=== PATIENT | male | born 1940 ===

== ENCOUNTER 2017-05-14 10:30 | Inpatient (IN) | payer MEDICARE, OTHER ==
[2017-05-31] MEDS ORDERED: VANCOMYCIN HCL 1,000 MG in 0.9 % SODIUM CHLORIDE 250ML 250 ML IVPB ONE (06:00)
[2017-05-31] MEDS ORDERED: FAMOTIDINE 20MG TABLET PO ONE (06:00)
[2017-05-31] MEDS ORDERED: METOCLOPRAMIDE 10 MG TABLET PO ONE (06:00)
[2017-05-31] MEDS ORDERED: ACETAMINOPHEN 1,000 MG/100 ML BTL IV ONE (06:00)
[2017-05-31] MEDS ORDERED: CELECOXIB 100 MG CAPSULE PO ONE (06:00)
[2017-05-31] MEDS ORDERED: MECLIZINE 25 MG TABLET PO ONE (06:00)
[2017-05-31 13:03] LABS: ABO GROUP AB; ANTIBODY SCREEN NEGATIVE (NEGATIVE); RH TYPE POSITIVE
[2017-05-31] MEDS ORDERED: *PACU ONLY* KETAMINE HCL 10 MG/ML (20ML) VIAL IV ONE (14:00)
[2017-05-31] MEDS ORDERED: MIDAZOLAM HCL 2MG/2ML VIAL IV ONE (14:00)
[2017-05-31] MEDS ORDERED: BUPIVACAINE LIPOSOME 266MG/20ML VIAL IV ONE (14:00)
[2017-05-31] MEDS ORDERED: TRANEXAMIC ACID 1,000 MG/10 ML ML IV ONE ×2 (14:00)
[2017-05-31] MEDS ORDERED: BUPIVACAINE 0.5% (5MG/ML) PF 30ML VIAL IVP ONE (14:00)
[2017-05-31] MEDS ORDERED: VANCOMYCIN HCL 1 GM VIAL IVPB ONE (14:00)
[2017-05-31] MEDS ORDERED: KETOROLAC 30 MG/ML VIAL IVP ONE (14:00)
[2017-05-31] MEDS ORDERED: HYDROMORPHONE HCL 2 MG/ML VIAL IV ONE (14:00)
[2017-05-31] MEDS ORDERED: FENTANYL PF 100MCG/2ML VIAL IV ONE (14:00)
[2017-05-31] MEDS ORDERED: BUPIVACAINE 0.5% W/EPI MPF 30 ML VIAL IVP ONE (14:00)
[2017-05-31] MEDS ORDERED: PROPOFOL 10 MG/ML VIAL IV ONE (14:00)
[2017-05-31] MEDS ORDERED: BISACODYL 10 MG SUPP RC PRN (14:35)
[2017-05-31] MEDS ORDERED: HYDROMORPHONE HCL 2 MG/ML VIAL IM PRN (14:35)
[2017-05-31] MEDS ORDERED: PROMETHAZINE HCL 12.5 MG in 0.9 % SODIUM CHLORIDE 100ML 50 ML IVPB PRN (14:35)
[2017-05-31] MEDS ORDERED: MORPHINE SULFATE 5 MG/ML PFS IVP PRN ×4 (14:35)
[2017-05-31] MEDS ORDERED: ACETAMINOPHEN 325 MG TAB PO PRN (14:35)
[2017-05-31] MEDS ORDERED: KETOROLAC 30 MG/ML VIAL IVP PRN ×2 (14:35)
[2017-05-31] MEDS ORDERED: ZOLPIDEM TARTRATE 5 MG TABLET PO PRN (14:35)
[2017-05-31] MEDS ORDERED: DIPHENHYDRAMINE HCL 25 MG CAPSULE PO PRN (14:35)
[2017-05-31] MEDS ORDERED: HYDROMORPHONE HCL 1MG/ML **SYRINGE IM PRN (14:35)
[2017-05-31] MEDS ORDERED: METOCLOPRAMIDE HCL 10 MG/2 ML VIAL IVP PRN (14:35)
[2017-05-31] MEDS ORDERED: TRAMADOL HCL 50 MG TABLET PO PRN ×2 (14:35)
[2017-05-31] MEDS ORDERED: ACETAMINOPHEN W/ CODEINE 300MG/30MG TABLET PO PRN ×2 (14:35)
[2017-05-31] MEDS ORDERED: NALOXONE 0.4 MG/1 ML VIAL IVP PRN (14:35)
[2017-05-31] MEDS ORDERED: HYDROCODONE/APAP 5/325MG TABLET PO PRN ×2 (14:35)
[2017-05-31] MEDS ORDERED: DEXTROSE 5 % AND 0.9 % NACL 1,000 ML IV PRN (14:35)
[2017-05-31] MEDS ORDERED: ACETAMINOPHEN W/ CODEINE 300MG/60MG TABLET PO PRN ×2 (14:35)
[2017-05-31] MEDS ORDERED: MAGNESIUM HYDROXIDE 30 ML UDC PO PRN (14:35)
[2017-05-31] MEDS ORDERED: HYDROCODONE/APAP 7.5/325MG TABLET PO PRN ×2 (14:35)
[2017-05-31] MEDS ORDERED: AL HYDROX/MAG HYDROX 30ML UD PO PRN (14:35)
[2017-05-31] MEDS: ONDANSETRON HCL IV 4 MG/2 ML VIAL IVP PRN (18:21)
[2017-05-31] MEDS ORDERED: SIMVASTATIN 20 MG TABLET PO SCH (22:00)
[2017-05-31] MEDS: FERROUS SULFATE 325 MG TAB PO SCH (22:05)
[2017-05-31] MEDS: DOCUSATE SODIUM 100 MG CAPSULE PO SCH (22:05)
[2017-05-31] MEDS: METOPROLOL TART 50 MG TABLET PO SCH (22:06)
[2017-06-01] MEDS: 0.45% SODIUM CHLORIDE 1,000 ML IV PRN ×2 (00:54→10:40)
[2017-06-01] MEDS: VANCOMYCIN HCL 1,000 MG in 0.9 % SODIUM CHLORIDE 250ML 250 ML IVPB SCH ×2 (00:55→12:55)
[2017-06-01] MEDS ORDERED: VANCOMYCIN HCL 1,000 MG in 0.9 % SODIUM CHLORIDE 250ML 250 ML IVPB SCH (01:00)
[2017-06-01] MEDS: ONDANSETRON HCL IV 4 MG/2 ML VIAL IVP PRN (01:18)
[2017-06-01 06:35] LABS: HEMOGLOBIN 10.9 gm/dl (14.0-18.0)
[2017-06-01] MEDS ORDERED: GLIPIZIDE 5 MG TABLET PO SCH ×2 (08:00→17:30)
[2017-06-01] MEDS ORDERED: METFORMIN 500 MG TABLET PO SCH (08:00)
[2017-06-01] MEDS: DOCUSATE SODIUM 100 MG CAPSULE PO SCH (09:20)
[2017-06-01] MEDS: FERROUS SULFATE 325 MG TAB PO SCH (09:21)
[2017-06-01] MEDS: METOPROLOL TART 50 MG TABLET PO SCH (09:21)
[2017-06-01] MEDS ORDERED: HYDROCHLOROTHIAZIDE 12.5 MG CAPSULE PO SCH (10:00)
[2017-06-01] MEDS ORDERED: LISINOPRIL 20 MG TABLET PO SCH (10:00)
[2017-06-01] MEDS ORDERED: RIVAROXABAN 10 MG TABLET PO SCH (10:00)
[2017-06-01] MEDS ORDERED: CELECOXIB 100 MG CAPSULE PO SCH (10:00)
--- NOTE | 2017-06-01 10:45 | Rehab Evaluation ---
Patient Information - Patient Information Diagnosis: Right total knee Ordered Treatment: PT Evaluate and Treat Status: Initial Evaluation Surgery: Yes (right TKA) Date of Surgery: 05/31/17 Past Medical/Surgical Hx: PAST MEDICAL/SURGICAL HISTORY Past Surgical History cardiac cath with stent placement; colonoscopy; mcl tear; PMH - Respiratory Hx Respiratory Disorders No PMH - Cardiovascular Hx Cardiovascular Disorders Yes Hx Cardiac Catheterization Yes Hx Heart Attack Yes Hx Hypertension Yes Hx Coronary Stent Yes Comment: varicose veins PMH - Neuro Hx Neurological Disorders No PMH - GI Hx Gastrointestinal Disorders Yes Hx Diverticulitis Yes PMH - Hx Genitourinary Disorders Yes Hx Kidney Stones Yes PMH - Endocrine Hx Endocrine Disorders Yes Hx Diabetes Yes Hx of NIDDM Yes PMH - Musculoskeletal Hx Musculoskeletal Disorders Yes Hx Arthritis Yes Comment: neck injury; herniated disc cervical; radiculopathy; limited neck movement; PMH - Psych Hx Psychiatric Problems Yes Hx Depression Yes Comment: with stage 3 cancer; retired systems architect PMH - Hematology/Oncology Hx Hematology/Oncology No Disorders Precautions: [place], Fall - Time With Patient Total Time Spent With Patient (Min): 30 Treatment Procedures: Detail (Patient seen bedside, daughter present. Able to move supine to sit to stand with CGA only. Patient ambulated into bathroom with FWW and assist with IV pole, able to use commode seated and re-stand and wash hands independently. Ambulated with walker about 100 feet in [place], WBAT right LE then back to room, into bed with SBA and worked on knee exercises: heel slides, SLR, ankle pumps, quad sets. Re-attached all devices and pushed tray table close, call light within reach.) Subjective Information - Subjective Information Per Patient (Lives in two story home with , daughter and other family will be helping at home and has hospital bed on first floor of home for now until can climb multiple steps to second floor. Will also have home health PT when first goes home.) Objective Data - Pain Pain Present: No - Mental Status Patient Orientation: Oriented x3 - Visual Perception Appears within normal limits for therapeutic activities - ROM Within normal limits (except right knee about -10degrees extension to 60 degrees flexion.) - Strength/Tone Within normal limits (except right quads 3+/5, hamstrings 4/5 at least.) - Coordination Appears within normal limits for therapeutic activities - Bed Mobility Independent - Transfers Independent - Balance Balance Sitting: Good Balance Standing: Good - Sensation Intact - Gait Detail (Using FWW for gait and independent so far. No pain with weightbearing.) Therapy Assessment - Therapy Assessment Detail (Patient is doing quite well with pain control and function so far. Had some issues after surgery yesterday but good today and should be able to go home today with family assist.) Patient Education - Patient Education Teaching Topic: Equipment Use, Exercise/Activity Response: Return Demonstration Teaching Method: Demonstration Teaching Recipient: Patient, Family Barriers To Learning: None Problem List - Problem List Physical Therapy Problem List: Detail (Some decreased mobility and endurance but progressing well.) Goals - Goals Physical Therapy Goals: Patient will be independent with transfers, gait, steps (three per our facility) and exercises needed to be discharged home soon. Prognosis - Prognosis Good (Patient should be able to go home this afternoon if does as well later as this am.) Plan - Plan Physical Therapy Plan: Continue PT BID today and possible discharge home today if passes gait and stair criteria.
--- NOTE | 2017-06-01 11:38 | Rehab Evaluation ---
Patient Information - Patient Information Diagnosis: Right total knee Ordered Treatment: OT Evaluate and Treat Status: Initial Evaluation Surgery: Yes (right TKA) Date of Surgery: 05/31/17 Past Medical/Surgical Hx: PAST MEDICAL/SURGICAL HISTORY Past Surgical History cardiac cath with stent placement; colonoscopy; mcl tear; PMH - Respiratory Hx Respiratory Disorders No PMH - Cardiovascular Hx Cardiovascular Disorders Yes Hx Cardiac Catheterization Yes Hx Heart Attack Yes Hx Hypertension Yes Hx Coronary Stent Yes Comment: varicose veins PMH - Neuro Hx Neurological Disorders No PMH - GI Hx Gastrointestinal Disorders Yes Hx Diverticulitis Yes PMH - Hx Genitourinary Disorders Yes Hx Kidney Stones Yes PMH - Endocrine Hx Endocrine Disorders Yes Hx Diabetes Yes Hx of NIDDM Yes PMH - Musculoskeletal Hx Musculoskeletal Disorders Yes Hx Arthritis Yes Comment: neck injury; herniated disc cervical; radiculopathy; limited neck movement; PMH - Psych Hx Psychiatric Problems Yes Hx Depression Yes Comment: with stage 3 cancer; retired duplicating machine operator PMH - Hematology/Oncology Hx Hematology/Oncology No Disorders Premorbid Status: Detail (Pt lives with spouse in a 2 story house with 4 steps and a handrailing at the entrance. His bedroom is upstairs but he is planning to stay on the first floor temporarily and he has a hospital bed. He has walk in shower with a seat and an elevated toilet, no grab bar. He is responsible for home mgmt, meal prep tasks. 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 He has a 2 wheeled walker, crutches and a cane.) Precautions: [place], Fall - Time With Patient Total Time Spent With Patient (Min): 40 Treatment Procedures: Detail (OT eval low complexity) Subjective Information - Subjective Information Per Patient Objective Data - Pain Pain Present: No (Pt reports no pain currently.) - Mental Status Patient Orientation: Oriented x3 - Visual Perception Appears within normal limits for therapeutic activities - ROM Within normal limits (UE AROM WNL) - Strength/Tone Within normal limits (UE MMT WNL) - Coordination Appears within normal limits for therapeutic activities - Bed Mobility Independent (Ind with supine to sit and sit to supine.) - Transfers Independent (Ind with sit to stand from EOB) - Balance Balance Sitting: Good Balance Standing: Good - Sensation Intact - Gait Detail (Pt amb in room with 2 wheeled walker Indly.) - ADL's/IADL's Detail (Pt educated and demonstrates learning of modified LE dressing technique. He was able to don shirt, pants and socks Indly. Reviewed modified home mgmt techniques for meal prep and home mgmt.) Therapy Assessment - Therapy Assessment Detail (Pt demonstrates Ind with bed mobility, transfers and LE dressing.) Problem List - Problem List Physical Therapy Problem List: Detail (Some decreased mobility and endurance but progressing well.) Occupational Therapy Problem List: Detail (No current OT problems identified.) Goals - Goals Physical Therapy Goals: Patient will be independent with transfers, gait, steps (three per our facility) and exercises needed to be discharged home soon. Occupational Therapy Goals: No current OT goals identified. Prognosis - Prognosis Good Plan - Plan Physical Therapy Plan: Continue PT BID today and possible discharge home today if passes gait and stair criteria. Occupational Therapy Plan: No IP OT needed. May benefit from home OT to address IADLs.
--- NOTE | 2017-06-01 14:40 | Physical Therapy Tx Note ---
Physical Therapy Tx Note - Treatment Note Tolerated: Good (Patient continues to feel good and ready to be discharged this afternoon after finishes PT today.) Total Time Spent With Patient: 20 Physical Therapy Tx Note: Detail (Patient seen bedside and wants to use bathroom before goes on stairs. Able to get self out of bed and into bathroom with FWW and WBAT, used commode then ambulated into [place] and to stairs (about 75 feet) then down and up three steps with FWW folded and rail with proper technique. Ambulated back to room and started packing up to leave with daughter' s assist and assist of nursing. Saw doctor who plans to write orders for discharge. Patient doing well with his exercises.) Physical Therapy Problem List: Detail (Some decreased mobility and endurance but progressing well.) Physical Therapy Goals: Patient will be independent with transfers, gait, steps (three per our facility) and exercises needed to be discharged home soon. Prognosis: Good (Patient doing very well and ready for discharge home. Has passed all skills for discharge from PT.) Physical Therapy Plan: Continue PT BID today and possible discharge home today if passes gait and stair criteria.
[2017-06-01] MEDS ORDERED: JANUVIA 100 MG PO SCH (22:00)
--- NOTE | 2017-06-09 11:56 | Operative Note ---
DATE OF SURGERY: 05/31/2017 PREOPERATIVE DIAGNOSIS: Right knee end-stage arthrosis. POSTOPERATIVE DIAGNOSIS: Right knee end-stage arthrosis. OPERATION: Right total knee arthroplasty. Surgeon: Anshul Michael MD Anesthesia: Spinal, Joshua CRNA. COMPLICATIONS: None. ESTIMATED BLOOD LOSS: Minimal. TIME: Approximately 85 minutes. OPERATIVE FINDINGS: Severe [id number] medial compartment erosive arthrosis. COMPONENTS PLACED: A 2 g vancomycin cement [employer] II Oxinium size 9 femoral component, a size 8 tibial baseplate, a 10 mm thick tibial poly insert, and 38 mm cemented patellar component. Indications: This is a 76-year-old male who has had persistent pain and dysfunction in the knee for several years, failed outpatient treatments. Scheduled for total knee arthroplasty. I explained the risks and benefits in detail for the diagnosis and procedure including but not limited to infection, nerve injury, vessel injury, persistent pain, stiffness, numbness, tingling in the knee, periprosthetic fracture, need for resection arthroplasty if components are infected or loosen, blood clot, and need for further procedures and need for anticoagulation to prevent blood clots or associated medications. All his questions were answered. The course was outlined. He agreed to proceed. PROCEDURE: The patient brought to the OR, placed in the supine position, prepped for surgery. Spinal anesthesia was induced. The right lower extremity prepped and draped in sterile fashion. Right knee prepped again with Chloraprep and draped. Intraoperative timeout was performed. Next, the leg was exsanguinated with Esmarch. The knee was flexed, re-prepped and tourniquet inflated to 250 mmHg pressure. Next, skin and subcutaneous tissue dissected down. Incised the capsule medially around the medial border of the patella to the tibial tubercle. Incised the vastus medialis in line with its fibers. Everted the patella, partially resected the retropatellar fat pad, elevated the capsule subperiosteally and medially, flexed the knee. He had severe [id number] medial compartment arthrosis. We drilled the intracondylar drill hole and inserted intramedullary guide kenn and the 6-degree cutting block and aligned it off the distal femoral condyles. Pinned it in the + 2 mm position and cut the femur. Next, we placed a sizing jig. This femur sized to be a size 9, the largest component available. We then through the previously-placed pin holes placed the size 9 cutting jig down in the anterior cut so it came out flush without notching. We cut that cut and then checked it and it was a good cut. We then pinned the cutting jig in place and cut the remaining chamfer cuts in the usual fashion. Placed a size 9 femoral component, centered it, pinned it, removed osteophytes throughout the periphery. Inserted the cruciate resection and reamed down and box osteotome the cruciate bone block. Attention was turned to the tibia. Seated the spikes in the tubercular groove 2 fingerbreadths distal to the anterior tibial cortex in reference for a 7 mm cut off the higher lateral plateau. We pinned the cutting jig provisionally with 2 anterior-posterior pins. We rechecked the alignment of the cutting jig using a drop kenn centered on the tibial anatomic axis and cross-pinned to complete fixation and cut the tibia. Next, we removed osteophytes off the posterior femoral condyle. Checked the flexion/extension gaps. Had symmetric flexion/extension gaps with the 10 mm thick poly insert 2-3 mm of varus/valgus laxity in flexion/extension. Next, took the knee into flexion, used an alignment kenn, and our cuts were on the anatomic valgus orientation alignment kenn centered on the hip joint and ankle joint. Next, took the knee in flexion, sized a tibial baseplate of size, replaced all trial components, set the rotation tibial baseplate again extension using the alignment kenn centered on hip joint and ankle joint. Marked electrocautery hughes on the tibial cortex off the laser hughes of the tibial baseplate. Attention was turned to the patella. We measured the patella to be 26 mm. Set the cutting jig at 17 mm to allow for a 9 mm thick insert. Cut the patella and it was right on 17-18. Chamfered off the lateral patellar facet sized to be 38, medialized as much as possible, drilled 3 peg holes. Mixed cement. Did a trial of range of motion. The patella tracked nicely handsfree. Full extension and flexion to 130 to 140 degrees symmetric flexion/extension gaps. Took the knee into flexion. We then seated the tibial baseplate off the previously placed electrocautery hughes, pinned it in place, and then reamed out and keel punched the keel hole. Next, we changed clothes, brought in clean sheet, copiously irrigated with pulse lavage all bony surfaces. Placed a bone plug in the femoral canal hole and then keep reamer in the tibial hole. Precoated both surfaces and then impacted down the tibial component, removed excess cement, and then packed down the femoral component, removed excess cement. Inserted a trial tibial poly liner , held the knee in extension until cement hardened, clamped down the patella component and the patella tracked nicely with full extension/flexion to 140 degrees. Again, symmetric flexion/extension gap. Next, we extracted the knee of bone, hook, and sponge. Removed the trial tibial component and then we injected a mixture of 0.5% Marcaine with epi tranexamic acid 2 g, and Exparel with several sticks throughout the entire knee starting with the capsule medial and lateral, periosteum medial and lateral, vastus medialis medial, and then working out to the subcutaneous area until we used all of it. Next, inserted the real tibial poly insert with insertion/ We verified it was interlocked medially and laterally which it was. Next, in flexion we then closed the capsule and vastus with running #2 Quill, closed the skin with 2-0 Vicryl, and then we closed the skin with a zipline device using alcohol and thoroughly drying the skin and pressing down our colloid working from proximal to distal after we measured and cut the excess strips off distally in 90 degrees of flexion. This held the skin. They were all secure. Then we tightened on the zip ties to appropriate. Sterile dressing applied. Patient tolerated the procedure well. No intraoperative complications. We used Toradol IV also. Tolerated the procedure well. No intraoperative complications. Sponge and blade counts correct. Recovery room stable, neurovascular intact. Can be just sent to floor. Will get discharged tomorrow. [facility]
== END 2017-06-01 14:35 | disposition home or self-care (01) | DRG 470 ==
LOC: MEDSURG 05-31 12:15
PROVIDERS: ADMIT Orthopaedic Surgery; ATTEND Orthopaedic Surgery
PROC: 0SRC0J9 Replacement of Right Knee Joint with Synthetic Substitute, Cemented, Open Approach (ICD-10-PCS; principal; 2017-05-31 14:00)
DX: M17.11 Unilateral primary osteoarthritis, right knee (principal); E11.9 Type 2 diabetes mellitus without complications; Z79.84 Long term (current) use of oral hypoglycemic drugs; I10 Essential (primary) hypertension
CPT/HCPCS: 36416; 51798; 82948; 85014; 85018; 86850; 86900; 86901; 97116; 97165; J1885; J2405; J2765; J7050